=== PATIENT | male | born 1955 | race Caucasian/White ===

== ENCOUNTER 2021-09-15 10:23 | Outpatient (REF) | payer MEDICARE, MEDICAID, SELFPAY ==
--- NOTE | 2021-09-17 10:27 | MHC.AU.AHA ---
Adult Audiological Evaluation Date of Visit: 09/15/21 Shoe Salesperson Used: Not Applicable Reason for Appointment: Audiologic re-evaluation due to question of change in hearing ability. Arturo is accompanied today by a member of his program staff who reports Arturo has some difficulty manipulating his current BTE hearing aids as it requires placing an earmold and the hearing aid behind the ear, as well as changing batteries and Arturo wants to be more independent. Previous Hearing Test Results: 07/16/2020 [facility] Right ear - Moderately-severe to severe sensorineural hearing loss. Left ear - Moderately-severe to profound sensorineural hearing loss. Bilateral middle ear dysfunction has been noted for the past several hearing tests. Medical History: Medical History: High Blood Pressure, Thyroid Disease, Down Syndrome Medication List: Sodium Chloride, Calcium, Levothyroxine, Fish Oil, Zoloft, Debrox ear drops, Tylenol Arthritis, Metoprolol, Lachydrin Cream, Multivitamin, Prolia, Melatonin, Aspirin, Lisinopril, Colace Hearing Instrument History- Right Ear: Hay Stacker Operator: Oticon Model: Acto P BTE Serial Number: [id number] Battery Size: 13 Repair Warranty: 2015 Dispensed By: [facility] Date of Fittin02/11/2014 Hearing Instrument History- Left Ear: Hay Stacker Operator: Oticon Model: Acto P BTE Serial Number: [id number] Battery Size: 13 Warranty: 2015 Dispensed By: [facility] Date of Fittin02/11/2014 Otoscopy: Right Ear: Completely occluding cerumen removed prior to testing today Left Ear: Completely occluding cerumen removed prior to testing today Tympanometry: Not performed at today's visit Hearing Evaluation: Transducer(s) Used: Insert Earphones Bone Conduction Method: Conventional Audiometry Stimuli Used: Pure Tones Right Ear: Description of Hearing: Moderately-severe to profound sensorineural hearing loss Left Ear: Description of Hearing: Severe to profound sensorineural hearing loss Word Discrimination: Did not test as Estelas speech is difficult to understand Comparison: Compared to most recent evaluation: Overall right ear thresholds have decreased 5 dB with the left ear thresholds decreasing 10-15 dB at 250, 500, and 4000 Hz. Recommendations: Trial with new binaural one piece in-the-ear rechargeable hearing aids is recommended. Medical clearance from a physician is required before fitting. Hearing Aid Fitting will be scheduled when all materials arrive. Hearing aid maintenance performed today. Audiological re-evaluation in one year. Will send a reminder card. Diagnosis: Primary Diagnosis: H90.3 Bilateral Sensorineural Hearing Loss Secondary Diagnosis: H69.93 Unspecified Eustachian Tube Dysfunction, Bilateral Services Performed: Pure Tone- Air & Bone (CPT 10457) Speech Audiometry Threshold (SRT/SAT) (CPT 39688) Signature: Provider: Sarina Lucia, CCC-A
--- NOTE | 2021-09-17 10:32 | MHC.AU.MED ---
Medical Clearance for Hearing Instrumentation Date: 09/17/21 Patient Name: Arturo Hartman Date of : 1955 Primary Care Provider: Referring Provider: Andres Cantu MD We have seen your patient on 09/15/21 and have determined that they are a candidate for amplification (See accompanying report). Specifically, they would benefit from: Hearing aid use in both ears There is a statute that addresses Medical Evaluation Requirements prior to fitting a patient with a hearing aid. According to [place] statute 265 CMR:6.03(1), (a) General. Except as provided in 265 CMR 6.03(1)(b), a hearing instrument specialist shall not sell a hearing aid unless the prospective user has presented to the hearing instrument specialist a written statement signed by a licensed physician that states that the patient's hearing loss has been medically evaluated and the patient may be considered a candidate for a hearing aid. The medical evaluation must have taken place within the preceding six months. Please note: Due to the [place] Statute referenced above, we cannot accept a signature other than that of a licensed physician. CISCO UNIFIED COMMUNICATIONS ENGINEER and PA signatures cannot be accepted. I am in agreement with the above recommendation. There is no medical contraindication for hearing instrumentation. Physician Signature Date Physician Name (Printed)
--- NOTE | 2021-09-17 16:25 | MHC.AU.HAS ---
Hearing Aid Evaluation Date of Visit: 09/15/21 Historical Information: Description of Hearing: Right Ear - Moderately-severe to profound sensorineural hearing loss Left Ear - Severe to profound sensorineural hearing loss Current personal amplification information, if applicable: 2013 binaural Oticon Acto BTE Summary: Due to the age of patient's aids, change in hearing ability, and manual dexterity difficulties, advise new hearing aids to facilitate communication and independence in use of aids. Hearing Aid Prescription: Based on the individual?s shared listening needs, communication environments, dexterity, desire for connectivity, and personal preferences, the following prescription for amplification has been made: Right ear: Customer Training Specialist: [employer] Model: Evolve 1600 Full Shell ITE-R Battery Size: Rechargeable Color: Black Left ear: Customer Training Specialist: [employer] Model: Evolve 1600 Full Shell ITE-R Battery Size: Rechargeable Color: Black Accessories/Assistive Technology Recommended: Otoclip loops and need to order binaural ITE Otoclip. REQUESTING [employer] TO CALL WHEN ORDER RECEIVED TO MAKE SURE OTOCLIP LOOPS CAN BE PLACED ON FACEPLATE WITH RECHARGEABLE. OR MAY NEED TO ADD A HELIX CURL. Plan of Care: Patient wishes to purchase hearing aids as prescribed Action Taken/Action Needed: Earmold Impressions Taken, Prior authorization to be requested, Medical Clearance to be requested from PCP/ENT, Hearing Instrument Fitting to be scheduled when materials arrive Primary Diagnosis: H90.3 Bilateral Sensorineural Hearing Loss Secondary Diagnosis: H69.93 Unspecified Eustachian Tube Dysfunction, Bilateral Signature: Provider: Barrington Lucia, CCC-A
== END 2021-09-15 10:24 | disposition home or self-care (01) ==
LOC: HO.SH 10:23
PROVIDERS: Visit Provider Internal Medicine
DX: H90.3 Sensorineural hearing loss, bilateral (principal); H69.93 Unspecified Eustachian tube disorder, bilateral
CPT/HCPCS: 92553; 92555; 92591; V5266; V5275

== ENCOUNTER 2021-10-15 12:06 | Outpatient (REF) | payer MEDICARE, MEDICAID, SELFPAY | END 2021-10-15 12:07 | disposition home or self-care (01) | LOC: HO.HAP 12:06 | PROVIDERS: Visit Provider Internal Medicine | DX: Z46.1 Encounter for fitting and adjustment of hearing aid (principal); H90.3 Sensorineural hearing loss, bilateral | CPT/HCPCS: V5011; V5020; V5160; V5260 ==

== ENCOUNTER 2021-10-29 13:35 | Outpatient (REF) | payer MEDICARE, MEDICAID, SELFPAY | END 2021-10-29 13:36 | disposition home or self-care (01) | LOC: HO.HAP 13:35 | PROVIDERS: Visit Provider Internal Medicine | DX: Z13.89 Encounter for screening for other disorder (principal) ==

== ENCOUNTER 2021-12-02 08:41 | Outpatient (REF) | payer SELFPAY | END 2021-12-02 08:42 | disposition home or self-care (01) | LOC: HO.HAP 08:41 | PROVIDERS: Visit Provider Internal Medicine | DX: Z13.89 Encounter for screening for other disorder (principal) ==

== ENCOUNTER 2021-12-21 10:19 | Outpatient (REF) | payer MEDICARE, MEDICAID, SELFPAY | END 2021-12-21 10:20 | disposition home or self-care (01) | LOC: HO.HAP 10:19 | PROVIDERS: Visit Provider Internal Medicine | DX: Z13.89 Encounter for screening for other disorder (principal) ==

== ENCOUNTER 2022-08-18 08:43 | Outpatient (REF) | payer MEDICARE, MEDICAID, SELFPAY | END 2022-08-18 08:44 | disposition home or self-care (01) | LOC: HO.HAP 08:43 | PROVIDERS: Visit Provider Internal Medicine | DX: Z13.89 Encounter for screening for other disorder (principal) ==

== ENCOUNTER 2022-09-01 08:23 | Outpatient (REF) | payer SELFPAY | END 2022-09-01 08:24 | disposition home or self-care (01) | LOC: HO.HAP 08:23 | PROVIDERS: Visit Provider Internal Medicine | DX: Z13.89 Encounter for screening for other disorder (principal) ==

== ENCOUNTER 2022-11-23 12:56 | Outpatient (REF) | payer MEDICARE, MEDICAID, SELFPAY | END 2022-11-23 12:57 | disposition home or self-care (01) | LOC: HO.HAP 12:56 | PROVIDERS: Visit Provider Internal Medicine | DX: Z13.89 Encounter for screening for other disorder (principal) ==

== ENCOUNTER 2022-11-30 12:58 | Outpatient (REF) | payer MEDICARE, MEDICAID, SELFPAY ==
--- NOTE | 2022-11-30 15:52 | MHC.AU.HA3 ---
Hearing Instrument Follow-Up- Binaural Date of Visit: 11/30/22 Right Ear: Ramses, Model, Color, Serial Number: Елена Odell MA 1600 ITE-R SN: [id number] Color: Black Immigration Law Specialist Repair Warranty: 10/24/2024 Immigration Law Specialist Loss and Damage Warranty: 10/24/2024 [facility] Service Plan: 10/15/2022 Battery Size: Rechargeable Type of Wax Guard: HearClear Dispensed By: [facility] Date of Fittin10/15/2021 Left Ear: Ramses, , Color, Serial Number: Елена Odell MA 1600 ITE-R SN: [id number] Color: Black Immigration Law Specialist Repair Warranty: 10/24/2024 Immigration Law Specialist Loss and Damage Warranty: 10/24/2024 USED 12/21/2021 [facility] Service Plan: 10/15/2022 Battery Size: Rechargeable Type of Wax Guard: HearClear Dispensed By: [facility] Date of Fittin10/15/2021 Follow-Up Summary: Arturo has reportedly not been hearing well even with his hearing aids. He currently is wearing only the right hearing aid as the left hearing aid is out for repair. Upon inspection, the right hearing aid was not working due to a plugged wax guard. Cleaned the hearing aid, vacuumed the microphones, and replaced the wax guard. A listening check demonstrated that the hearing aid is in good working order. Recommendations: Hearing aid(s) programming updated with most current audiogram. Recommendations (Other): An appointment should be scheduled for reprogramming of both hearing aids to updated hearing test once the left hearing aid is back from repair Diagnosis Code(s):Primary Diagnosis: H90.6 Mixed Hearing Loss, Bilateral Secondary Diagnosis: H69.93 Unspecified Eustachian Tube Dysfunction, Bilateral Signature: Provider: Jesus Harrison, [facility]
--- NOTE | 2022-11-30 16:57 | MHC.AU.MED ---
Medical Clearance for Hearing Instrumentation Date: 11/30/22 Patient Name: Arturo Hartman Date of : 1955 Primary Care Provider: Andres Cantu MD We have seen your patient on 11/30/22 and have determined that they are a candidate for amplification (See accompanying report). Specifically, they would benefit from: Hearing aid use in both ears There is a statute that addresses Medical Evaluation Requirements prior to fitting a patient with a hearing aid. According to [place] statute 265 CMR:6.03(1), (a) General. Except as provided in 265 CMR 6.03(1)(b), a book store associate shall not sell a hearing aid unless the prospective user has presented to the book store associate a written statement signed by a licensed physician that states that the patient's hearing loss has been medically evaluated and the patient may be considered a candidate for a hearing aid. The medical evaluation must have taken place within the preceding six months. Please note: Due to the [place] Statute referenced above, we cannot accept a signature other than that of a licensed physician. COORDINATOR SKILL TRAINING PROGRAM and PA signatures cannot be accepted. I am in agreement with the above recommendation. There is no medical contraindication for hearing instrumentation. Physician Signature Date Physician Name (Printed)
== END 2022-11-30 12:59 | disposition home or self-care (01) ==
LOC: HO.SH 12:58
PROVIDERS: Visit Provider Internal Medicine
DX: Z01.118 Encounter for examination of ears and hearing with other abnormal findings (principal); Z46.1 Encounter for fitting and adjustment of hearing aid; H90.6 Mixed conductive and sensorineural hearing loss, bilateral
CPT/HCPCS: 92553; 92567; 92583; 92592; 99499

== ENCOUNTER 2022-12-07 13:17 | Outpatient (REF) | payer MEDICARE, MEDICAID, SELFPAY ==
--- NOTE | 2022-12-07 13:50 | MHC.AU.HA3 ---
Hearing Instrument Follow-Up- Binaural Date of Visit: 12/07/22 Right Ear: Ramses, Model, Color, Serial Number: Елена Odell MA 1600 ITE-R SN: [id number] Color: Black Statistical Reporting Analyst Repair Warranty: 10/24/2024 Statistical Reporting Analyst Loss and Damage Warranty: 10/24/2024 [facility] Service Plan: 10/15/2022 Battery Size: Rechargeable Type of Wax Guard: HearClear Dispensed By: [facility] Date of Fittin10/15/2021 Left Ear: Ramses, Model, Color, Serial Number: Елена Odell MA 1600 ITE-R SN: [id number] Color: Black Statistical Reporting Analyst Repair Warranty: 10/24/2024 Statistical Reporting Analyst Loss and Damage Warranty: 10/24/2024 USED 12/21/2021 [facility] Service Plan: 10/15/2022 Battery Size: Rechargeable Type of Wax Guard: HearClear Dispensed By: [facility] Date of Fittin10/15/2021 Follow-Up Summary: Arturo returned to tow picker his repaired left hearing aid. His right hearing aid wax guard was plugged again. Cleaned his right hearing aid and replaced the wax guard. A listening check demonstrated that the hearing aid is in good working order. Reprogrammed both hearing aids to NAL-NL2 using his updated hearing test from 11/30/2022. Significant feedback noted from both hearing aids. Ran feedback property disposal manager and decreased to experience level 2. Feedback better in office. Per accompanying staff member, Arturo saw PCP who recommended using wax softening drops prior to wax removal. He has follow up with his PCP for wax removal after using the drops. Recommendations: Hearing instrument maintenance in 6 months, or sooner if needed. Diagnosis Code(s): Primary Diagnosis: H90.6 Mixed Hearing Loss, Bilateral Secondary Diagnosis: H69.93 Unspecified Eustachian Tube Dysfunction, Bilateral Signature: Provider: Jesus Harrison, [facility]
== END 2022-12-07 13:18 | disposition home or self-care (01) ==
LOC: HO.HAP 13:17
PROVIDERS: Visit Provider Internal Medicine
DX: Z46.1 Encounter for fitting and adjustment of hearing aid (principal); H90.6 Mixed conductive and sensorineural hearing loss, bilateral
CPT/HCPCS: 92593; 99499

== ENCOUNTER 2023-06-06 14:31 | Outpatient (REF) | payer MEDICARE, MEDICAID, SELFPAY ==
--- NOTE | 2023-06-06 15:17 | MHC.AU.HA3 ---
Hearing Instrument Follow-Up- Binaural Date of Visit: 06/06/23 Right Ear: Ramses, Model, Color, Serial Number: Елена Odell MA 1600 ITE-R SN: [id number] Color: Black Investment Associate Repair Warranty: 10/24/2024 Investment Associate Loss and Damage Warranty: 10/24/2024 [facility] Service Plan: 10/15/2022 Battery Size: Rechargeable Type of Wax Guard: HearClear Dispensed By: [facility] Date of Fittin10/15/2021 Left Ear: Ramses, Model, Color, Serial Number: Елена Odell MA 1600 ITE-R SN: [id number] Color: Black Investment Associate Repair Warranty: 10/24/2024 Investment Associate Loss and Damage Warranty: 10/24/2024 USED 12/21/2021 [facility] Service Plan: 10/15/2022 Battery Size: Rechargeable Type of Wax Guard: HearClear Dispensed By: [facility] Date of Fittin10/15/2021 Follow-Up Summary: Arturo's hearing aids were reportedly not working. Upon inspection, wax guards occluded. Cleaned hearing aids and replaced wax guards. A listening check demonstrated that the hearing aids are in good working order. Otoscopy revealed significant cerumen, bilaterally. Demo'ed how to change the wax guard to accompanying staff member and advised to ensure hearing aids are working by listening for feedback when cupping it in hand. Also explained that push button is manual on/off switch when pushed and held and to ensure not accidentally pushing the button when inserting the hearing aids. Recommendations: Hearing instrument maintenance in 6 months, or sooner if needed. Follow up with primary care physician for cerumen removal. Diagnosis Code(s): Primary Diagnosis: H90.6 Mixed Hearing Loss, Bilateral Signature: Provider: Jesus Harrison, [facility]
== END 2023-06-06 14:32 | disposition home or self-care (01) ==
LOC: HO.HAP 14:31
PROVIDERS: Visit Provider Internal Medicine
DX: Z46.1 Encounter for fitting and adjustment of hearing aid (principal); H90.6 Mixed conductive and sensorineural hearing loss, bilateral
CPT/HCPCS: 92593; 99499

== ENCOUNTER 2023-07-21 11:08 | Outpatient (REF) | payer MEDICARE, MEDICAID, SELFPAY | END 2023-07-21 11:09 | disposition home or self-care (01) | LOC: HO.HAP 11:08 | PROVIDERS: Visit Provider Internal Medicine | DX: Z13.89 Encounter for screening for other disorder (principal) ==

== ENCOUNTER 2023-08-05 11:01 | Outpatient (REF) | payer MEDICARE, MEDICAID, SELFPAY ==
--- NOTE | 2023-08-05 13:01 | MHC.AU.HA3 ---
Hearing Instrument Follow-Up- Binaural Date of Visit: 08/05/23 Right Ear: Ramses, Model, Color, Serial Number: Елена Odell MA 1600 ITE-R SN: [id number] Color: Black Delivery Consultant Repair Warranty: 10/24/2024 Delivery Consultant Loss and Damage Warranty: 10/24/2024 [facility] Service Plan: 10/15/2022 Battery Size: Rechargeable Type of Wax Guard: HearClear Dispensed By: [facility] Date of Fittin10/15/2021 Left Ear: Ramses, Model, Color, Serial Number: Елена Odell MA 1600 ITE-R SN: [id number] Color: Black Delivery Consultant Repair Warranty: 10/24/2024 Delivery Consultant Loss and Damage Warranty: 10/24/2024 USED 12/21/2021 [facility] Service Plan: 10/15/2022 Battery Size: Rechargeable Type of Wax Guard: HearClear Dispensed By: [facility] Date of Fittin10/15/2021 Follow-Up Summary: Arturo returned to grape picker his left repaired hearing aid. He brought his right hearing aid to have the pair reconnected in the programming software. However, upon arrival, the right hearing aid was not working. Wax guard and vent plugged. Cleaned the hearing aid and replaced the wax guard. Even after cleaning, the hearing aid would not turn on. When placed in Arturo's hand presser, the LED light would not turn on indicating that the hearing aid is charging. Confirmed via stock hand presser. Right hearing aid sent to [facility] for repair. Arturo's accompanying [facility] staff member opted to leave Arturo's left hearing aid and hand presser here until right hearing aid is back from repair. Arturo is currently using his old BTE hearing aids. Recommendations: Patient will be contacted when materials have arrived. Recommendations (Other): Left hearing aid, hand presser, cord, and wall plug are in repair drawer. Once right hearing aid returns from repair, it can be reconnected to left hearing aid and penitentiary can be contacted to grape picker both hearing aids and hand presser (no appointment needed). Diagnosis Code(s): Primary Diagnosis: H90.6 Mixed Hearing Loss, Bilateral Signature: Provider: Jesus Harrison, [facility]
== END 2023-08-05 11:02 | disposition home or self-care (01) ==
LOC: HO.HAP 11:01
PROVIDERS: Visit Provider Internal Medicine
DX: Z46.1 Encounter for fitting and adjustment of hearing aid (principal); H90.6 Mixed conductive and sensorineural hearing loss, bilateral
CPT/HCPCS: 92593; 99499

== ENCOUNTER 2023-08-22 11:41 | Outpatient (REF) | payer MEDICARE, MEDICAID, SELFPAY | END 2023-08-22 11:42 | disposition home or self-care (01) | LOC: HO.HAP 11:41 | PROVIDERS: Visit Provider Internal Medicine | DX: Z13.89 Encounter for screening for other disorder (principal) ==